=== PATIENT | male | born 1935 | race Caucasian/White ===

== ENCOUNTER → 2016-10-22 | Outpatient (CLI) | payer OTHER | LOC: CIMAGING 10:17 | PROVIDERS: ATTEND Internal Medicine | DX: J84.9 Interstitial pulmonary disease, unspecified (principal); K44.9 Diaphragmatic hernia without obstruction or gangrene; I70.8 Atherosclerosis of other arteries; R06.02 Shortness of breath; I27.2 Other secondary pulmonary hypertension; R94.2 Abnormal results of pulmonary function studies | CPT/HCPCS: 71250-PO ==

== ENCOUNTER 2017-01-21 06:27 | Day surgery (SDC) | payer OTHER ==
[2017-01-21] MEDS ORDERED: ALBUTEROL 3 ML DEYVIAL ONE (06:41)
[2017-01-21] MEDS ORDERED: LIDOCAINE 1% 300 MG/30 ML SDV ONE (06:41)
[2017-01-21] MEDS ORDERED: MIDAZOLAM 2 MG/2 ML VIAL ONE (06:41)
[2017-01-21] MEDS ORDERED: LIDOCAINE 2% JELLY 5 ML TUBE ONE (06:42)
[2017-01-21] MEDS ORDERED: fentaNYL 100 MCG/2 ML INJ ONE (06:42)
[2017-01-21 07:03] VITALS: TEMP 97.7
--- NOTE | 2017-01-21 07:29 | PDPROPOC ---
Sedation Plan of Care Sedation Plan of Care: vital signs stable, mental status noted, patient educated of risks, benefits, alternatives, patient can tolerate sedation ASA Classification: ASA 2 Planned drugs: fentanyl, midazolam Mallampati Score: Class 2 Mallampati Reference Image: Patient passed 3-3-2 rule?: Yes
--- NOTE | 2017-01-21 07:29 | PDHPUP ---
History & Physical Update H&P update statement: This history and physical update is based on an assessment of the patient which was completed after admission or registration (within 24 hours), but prior to the surgery/procedure. H&P update: H&P reviewed & patient examined, no change in patient's condition since H&P completed
[2017-01-21] MEDS ORDERED: fentaNYL 100 MCG/2 ML INJ IVP ONE (08:02)
[2017-01-21] MEDS ORDERED: MIDAZOLAM 10 MG/2 ML VIAL IVP ONE (08:02)
--- NOTE | 2017-01-21 08:11 | BVPULMO ---
Former[facility]- Pulmonology Patient Name: Mp Balderrama Procedure Date: 01/21/2017 7:37 AM Patient Type: Outpatient Attending MD/ER Physician: Kirk Cole MD Procedure: Bronchoscopy Indications: Interstitial lung disease Providers: Kirk Cole MD Medicines: Midazolam 1 mg IV, Fentanyl 50 mcg IV, Lidocaine 1% subglottic space 4 mL Complications: No immediate complications Procedure: After informed consent, a time out was performed. N95 masks were worn, and the procedure was done in a negative pressure room. The patient was given appropria te topical anesthesia and intravenous sedation. The fiberopic bronchoscope was pas sed via a bite block orally into the larynx and subsequently into the lower trachea bronchial tree. Throughout the procedure, the patient's blood pressure, pulse, and oxygen saturations were monitored continuously. The Bronchoscope (Video) was introduced through the and advanced to the. The Bronchoscope (Video ICU) was introduced through the mouth and advanced to the tracheobronchial tree of both lungs. The procedure was accomplished without difficulty. The patient tolerated the procedure well. Findings: Trachea/Elysia Abnormalities: An airway deviation was found in the upper trache a. BAL was performed in the RLL anterior basal segment (B8) of the lung and sent f or. 120 mL of fluid were instilled. 60 mL were returned. The return was cloudy. The re were no mucoid plugs in the return fluid. Multiple specimens were obtained and pooled into one specimen, which was sent for analysis. The patient's condition was unchanged after the intervention. Estimated blood loss: none. Post Op Diagnosis: - Interstitial lung disease - An airway deviation was found in the upper trachea. - Bronchoalveolar lavage was performed. - The patient's condition was unchanged after the intervention. Estimated Blood Loss: Estimated blood loss: none. Recommendation: - Await test results. - Discharge patient to home. - Follow up in clinic in 3-4 weeks. Attending Participation: I personally performed the entire procedure. Kirk Cole MD Kirk Cole MD 01/21/2017 8:10:54 AM This report has been signed electronicallyKirk Cole MD Number of Addenda: 0 Note Initiated On: 01/21/2017 7:37 AM [email or web address]
[2017-01-21 08:17] VITALS: RESP 16
[2017-01-21 09:31] VITALS: BP 132/72; PULSE 66; O2SAT 93
== END 2017-01-21 09:30 | disposition home or self-care (01) ==
LOC: FSGY 06:27
PROVIDERS: ATTEND Internal Medicine Critical Care Medicine
PROC: 0B968ZX Drainage of Right Lower Lobe Bronchus, Via Natural or Artificial Opening Endoscopic, Diagnostic (ICD-10-PCS; principal; 2017-01-21 07:30)
DX: J84.112 Idiopathic pulmonary fibrosis (principal); F32.9 Major depressive disorder, single episode, unspecified; I25.10 Atherosclerotic heart disease of native coronary artery without angina pectoris; E78.5 Hyperlipidemia, unspecified; I10 Essential (primary) hypertension; Z95.1 Presence of aortocoronary bypass graft
CPT/HCPCS: J0171; J2250; J3010

== ENCOUNTER → 2017-05-20 | Outpatient (CLI) | payer OTHER | LOC: CIMAGING 11:23 | PROVIDERS: ATTEND Internal Medicine Critical Care Medicine | DX: J84.9 Interstitial pulmonary disease, unspecified (principal); I27.21 Secondary pulmonary arterial hypertension | CPT/HCPCS: 71250-PO ==

== ENCOUNTER → 2017-09-24 | Outpatient (CLI) | payer OTHER | LOC: BRMIMAGING 13:39 | PROVIDERS: ATTEND Internal Medicine | DX: Z13.820 Encounter for screening for osteoporosis (principal); M85.89 Other specified disorders of bone density and structure, multiple sites; Z82.62 Family history of osteoporosis ==